=== PATIENT | male | born 1950 | race Hispanic/Latino ===

== ENCOUNTER 2019-01-19 12:00 | Emergency (ER) | payer MEDICARE ==
[~2019-01-19] VITALS: Ht 175.3 cm; Wt 86.2 kg
[2019-01-19] MEDS ORDERED: LABETALOL HCL 20 ML ONE (12:27)
[2019-01-19] MEDS ORDERED: LABETALOL HCL 20 MG/4 ML SYRINGE IV NR (12:30)
[2019-01-19] MEDS ORDERED: SODIUM CHLORIDE 0.9% 1000ML 1,000 ML IV SCH (12:30)
[2019-01-19] MEDS ORDERED: LORAZEPAM INJ 2 MG/ML VIAL IV ONE (12:30)
--- NOTE | 2019-01-19 12:40 | NUR ---
PT STATES NOT EATING SINCE YESTERDAY. PT REQUEST FOOD, PT GIVEN 2 PKS OF PEANUT BUTTER CRACKERS, 2 CRANBERRY JUICES AND 2 ALEJANDRO PUDDINGS; PT STATES HE DOESNT WANT PUDDING SINCE ITS NOT SUGAR FREE. PT STATES HE IS WATCHING HIS SUGARS AND WT.....
--- NOTE | 2019-01-19 13:09 | Diagnostic Imaging Report ---
History: Dizziness, uncontrolled high blood pressure Comparison studies: None Technique: Axial images were obtained from the skull base to the vertex. Coronal and sagittal reconstructions obtained from the axial data. Dose modulation, iterative reconstruction, and/or weight based adjustment of the mA/kV was utilized to reduce the radiation dose to as low as reasonably achievable. Intravenous contrast: None Findings: Scalp/skull: No abnormalities. No fractures, blastic or lytic lesions. Extra-axial spaces: No masses. No fluid collections. Brain sulci: Mildly prominent. Ventricles: Mild compensatory dilatation. No hydrocephalus. Parenchyma: Subtle hypodensities in the supratentorial white matter are small vessel ischemic changes. No masses, hemorrhage, acute or chronic cortical vascular insults. Sellar/suprasellar region: No abnormalities Craniocervical junction: Patent foramen magnum. No Chiari one malformation. Incidental findings: Peripheral mucosal thickening in the right sphenoid sinus. Frontal atherosclerotic calcifications in the carotid siphons The nasal septum is indicated for the left. IMPRESSION: No acute abnormalities. Chronic findings: 1. Mild generalized volume loss. 2. Mild supratentorial white matter ischemic changes. Signed by: Dr. Floyd Nix M.D. on 01/19/2019 1:06 PM
[2019-01-19] MEDS ORDERED: LISINOPRIL10 MG PO (13:14)
[2019-01-19] MEDS ORDERED: NORVASC10 MG PO (13:14)
--- NOTE | 2019-01-19 13:24 | NUR ---
MD STATES BP OK TO D/C. PT STATES NO MORE DIZZINESS OR FEELING BADLY. NO COMPLAINTS. PT AAOX4. AMBULATORY AT DC WITH EVEN STEADY GAIT. PT STATES FEELING GREAT IMPROVEMENT. STATES WILL FOLLOW UP WITH PCP THIS WEEK AND TAKE RX DIRECTED.
[2019-01-19] MEDS ORDERED: BACITRACIN ZINC 0.9GM TP ONE (13:58)
== END 2019-01-19 13:26 | disposition home or self-care (01) ==
LOC: FSED 12:00
DX: R42 Dizziness and giddiness (principal); I10 Essential (primary) hypertension
CPT/HCPCS: 70450; 80053; 81003; 82553; 85025; 99284; J2060; J3490

== ENCOUNTER 2020-01-01 12:44 | Emergency (ER) | payer MEDICARE ==
[~2020-01-01] VITALS: Ht 175.3 cm; Wt 83.9 kg
[~2020-01-01 12:44] MED LIST: LISINOPRIL10 MG PO; NORVASC10 MG PO
--- OUTSIDE RECORDS SUMMARY | 2020-01-01 12:46 | XMS REPORT ---
Author Author [facility] t Organization [facility] Address [address] [place] [address] Phone Unavailable Care Team Providers Care Pleater Hand Name Role Phone JOSE M, PCP PCP Unavailable Ekta FUNK Attphys Unavailable Payers Payer Name Policy Type Policy Number Effective Date Expiration Date Chary Gu [employer] Medicare Advantage [id number] 2018 00:0 0:00 [facility] Problems This patient has no known problems. Allergies, Adverse Reactions, Alerts This patient has no known allergies or adverse reactions. Medications Ordered Medication Name Filled Medication Name Start Date Stop Da te Current Medication? Ordering Clinician Indication Dosage Frequency Signature (SIG) Comments Components Source Amlodipine Besylate (Norvasc) 10 Mg Tab Amlodipine Besylate (Norvasc) 10 Mg Tab 2019-01-19 00:00:00 Yes Jamey Funk Md 5 Ac y [facility] Lisinopril 10 Mg Tablet Lisinopril 10 Mg Tablet 2019-01-19 00:00:00 Yes Jamey Funk Md 40 Daily [facility] Procedures This patient has no known procedures. Encounters Start Date/Time End Date/Time Encounter Type Admission Type Attendi [facility] Care Department Encounter ID Source 2019-01-19 12:00:00 2019-01-19 13:26:00 Departed Emergency Room 1 JAMEY FUNK [facility] [id number] [facility] Results Test Description Test Time Test Comments Results Result Comments Source CT BRAIN WO-HOPD 2019-01-19 13:04:00 [facility] [address] [address] Patient Name: JAYLEN ABEL MR #: [id number] : 1950 Age/Sex: 68/M Req #: [id number] Adm Physician: Ordered by: JAMEY FUNK MD Report #: [id number] Location: [facility] Room/Bed: Procedure: [id number] HOPD/CT BRAIN [facility] Exam Date: 01/19/19 Exam Time: 1300 REPORT STATUS: Signed History: Dizziness, uncontrolled high blood pressure Comparison studies: None Technique: Axial images were obtained from the skull base to the vertex. Coronal and sagittal reconstructions obtained from the axial data. Dose modulation, iterative reconstruction, and/or weight based adjustment of the mA/kV was utilized to reduce the radiation dose to as low as reasonably achievable. Intravenous contrast: None Findings: Scalp/skull: No abnormalities. No fractures, blastic or lytic lesions. Extra-axial spaces: No masses. No fluid collections. Brain sulci: Mildly prominent. Ventricles: Mild compensatory dilatation. No hydrocephalus. Parenchyma: Subtle hypodensities in the supratentorial white matter are small vessel ischemic changes. No masses, hemorrhage, acute or chronic cortical vascular insults. Sellar/suprasellar region: No abnormalities Craniocervical junction: Patent foramen magnum. No Chiari one malformation. Incidental findings: Peripheral mucosal thickening in the right sphenoid sinus. Frontal atherosclerotic calcifications in the carotid siphons The nasal septum is indicated for the left. IMPRESSION: No acute abnormalities. Chronic findings: 1. Mild generalized volume loss. 2. Mild supratentorial white matter ischemic changes. Signed by: Dr. Floyd Nix M.D. on 01/19/2019 1:06 PM Dictated By: FLOYD NIX MD, MD 1303 Transcribed By: LSIA on 01/19/19 1303 COPY TO: JAMEY FUNK MD
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
== END 2020-01-01 14:00 | disposition home or self-care (01) ==
LOC: FSED 12:44
DX: T16.1XXA Foreign body in right ear, initial encounter (principal); H61.21 Impacted cerumen, right ear; I10 Essential (primary) hypertension
CPT/HCPCS: 99282; G0268

== ENCOUNTER 2025-04-03 23:57 | Inpatient (IN) | payer MEDICARE ==
[~2025-04-03] VITALS: Ht 175.3 cm; Wt 80.7 kg
[2025-04-04] VITALS (10 sets, daily range): BP systolic 111–185; BP diastolic 66–88; PULSE 62–80; RESP 18–20; TEMP 97.4–98.3; O2SAT 96–100
[2025-04-04] MEDS ORDERED: Morphine 2mg Syringe 2 MG/ML SYR ONE (00:35)
[2025-04-04] MEDS: Morphine 2mg Syringe 2 MG/ML SYR IV ONE ×2 (00:53→02:35)
[2025-04-04] MEDS: ONDANSETRON HCL INJ 2MG/ML 2ML 2 MG/ML VIAL IV STA (00:53)
[2025-04-04] MEDS ORDERED: Morphine 2mg Syringe 2 MG/ML SYR IV PRN (02:15)
[2025-04-04] MEDS ORDERED: ONDANSETRON HCL INJ 2MG/ML 2ML 2 MG/ML VIAL IV PRN (02:15)
[2025-04-04] MEDS ORDERED: PIPERACILLIN/TAZOBACTAM 3.375 GM VIAL ONE (02:18)
[2025-04-04] MEDS: FAMOTIDINE 20 MG/2 ML VIAL IV STA (02:35)
[2025-04-04] MEDS: DICYCLOMINE HCL 20 MG/2 ML VIAL IM ONE (02:36)
[2025-04-04] MEDS: D5.45%NS/KCL 20MEQ 1,000 ML IV SCH (06:42)
[2025-04-04] MEDS ORDERED: MELATONIN 5 MG TABLET PO PRN (09:30)
[2025-04-04] MEDS ORDERED: SIMETHICONE 80 MG CHEW PO PRN (09:30)
[2025-04-04] MEDS ORDERED: ACETAMINOPHEN 325 MG TAB PO PRN (09:30)
[2025-04-04] MEDS ORDERED: POTASSIUM CHLORIDE 20 MEQ TAB CR PO PRN (09:30)
[2025-04-04] MEDS ORDERED: BENZONATATE 100 MG CAP PO PRN (09:30)
[2025-04-04] MEDS ORDERED: ALBUTEROL/IPRATROPIUM 3 ML NEB NEB PRN (09:30)
[2025-04-04] MEDS ORDERED: LIDOCAINE 4% PATCH TP PRN (09:30)
[2025-04-04] MEDS ORDERED: HYDRALAZINE HCL 20 MG/ML VIAL IV PRN (09:30)
[2025-04-04] MEDS ORDERED: DEXTROSE 50% SYRINGE 50 ML IV PRN (09:30)
[2025-04-04] MEDS ORDERED: DIPHENHYDRAMINE HCL 25 MG CAP PO PRN (09:30)
[2025-04-04] MEDS: SODIUM CHLORIDE 0.9% 1000ML 1,000 ML IV SCH (15:30)
[2025-04-04] MEDS: ENOXAPARIN SOD INJ 40 MG/0.4 ML SYR SC SCH (16:48)
[2025-04-04] MEDS: DOCUSATE SODIUM 100 MG CAP PO PRN (16:48)
[2025-04-05 03:39] VITALS: BP 144/70; PULSE 70; RESP 18; TEMP 97.5; O2SAT 96
[2025-04-05 06:16] LABS: PHOSPHORUS 3.1 MG/DL (2.3-4.7)
[2025-04-05 06:42] LABS: BASOPHILS % 0.4 % (0.0-1.0); EOSINOPHILS % 0.7 % (0.0-6.0); LYMPHOCYTES % 25.5 % (18.0-39.1); MONOCYTES % 9.9 % (4.4-11.3); NEUTROPHILS % 63.2 % (38.7-80.0); RED CELL DISTRIBUTION WIDTH 12.3 % (11.7-14.4)
[2025-04-05 06:55] LABS: EST GLOMERULAR FILTRATION RATE 91.0 ML/MIN (>=60)
[2025-04-05 06:56] VITALS: PULSE 78; RESP 22; O2SAT 95
[2025-04-05 08:03] VITALS: BP 140/73; PULSE 72; RESP 18; TEMP 98.5; O2SAT 99
[2025-04-05] MEDS: PANTOPRAZOLE SOD 40 MG TABEC PO SCH (08:03)
[2025-04-05] MEDS: AMLODIPINE BESYLATE 5 MG TAB PO SCH (08:07)
[2025-04-05 08:09] VITALS: BP 140/73; PULSE 72; RESP 18; TEMP 98.5; O2SAT 99
[2025-04-05 11:49] VITALS: BP 150/75; PULSE 72; RESP 18; TEMP 97.8; O2SAT 97
== END 2025-04-05 14:04 | disposition home or self-care (01) | DRG 392 ==
LOC: FSED 04-04 00:18 → ERHOLD 04-04 02:09 → MED/SURG3 04-04 05:06
PROVIDERS: ADMIT Internal Medicine; ATTEND Internal Medicine
DX: K52.9 Noninfective gastroenteritis and colitis, unspecified (principal); R18.8 Other ascites; K86.2 Cyst of pancreas; I10 Essential (primary) hypertension; K42.9 Umbilical hernia without obstruction or gangrene; D72.829 Elevated white blood cell count, unspecified; F10.11 Alcohol abuse, in remission; Z72.0 Tobacco use; Z91.148 Patient's other noncompliance with medication regimen for other reason
CPT/HCPCS: 36415; 74176; 80048; 80053; 82550; 83690; 83735; 84100; 84443; 84484; 85025; 93005; 94799; 96372; 96374; 96375; 99284; J1308; J1650; J2270; J2405; J2470; J2543; J7030

== ENCOUNTER 2025-06-09 11:27 | Emergency (ER) | payer MEDICARE ==
[~2025-06-09] VITALS: Ht 175.3 cm; Wt 80.0 kg
[2025-06-09] MEDS ORDERED: HYDROCODON-ACE1 EA11 PO (12:11)
[2025-06-09] MEDS ORDERED: HYDROCODONE/APAP 5MG-325MG TAB ONE (12:29)
[2025-06-09] MEDS: HYDROCODONE/APAP 5MG-325MG TAB PO ONE (12:45)
[2025-06-09] MEDS: LIDOCAINE HCL 1% LOCAL INJ 20 ML VIAL INJ ONE (12:46)
[2025-06-09] MEDS ORDERED: AMOX TR-K CLV1 EAC2 PO (12:55)
[2025-06-09 13:27] VITALS: PULSE 71; RESP 16; TEMP 98.2; O2SAT 100
[2025-06-09] MEDS: IBUPROFEN 400 MG TAB PO ONE (13:29)
== END 2025-06-09 13:27 | disposition home or self-care (01) ==
LOC: FSED 12:23
DX: S61.411A Laceration without foreign body of right hand, initial encounter (principal); W54.0XXA Bitten by dog, initial encounter; Y92.89 Other specified places as the place of occurrence of the external cause; I10 Essential (primary) hypertension; Z91.148 Patient's other noncompliance with medication regimen for other reason
CPT/HCPCS: 12002; 99283; J2003